=== PATIENT | female | born 1965 | race Caucasian/White ===

== ENCOUNTER 2021-09-05 07:48 | Day surgery (SDC) | payer BC ==
[~2021-09-05] VITALS: Ht 167.6 cm; Wt 60.6 kg
[~2021-09-05 07:48] MED LIST: LIOT5 PO; PROGESTERONE PO; T3/T4 PO
--- NOTE | 2021-09-05 08:19 | NUR ---
[facility] in [facility] warming gown applied. Surgical site prepped with 2% Chlorhexidine cloth wipe. History, Chart, Medications and Allergies reviewed before start of procedure.Lungs clear T/O to Auscultation. Patient confirms NPO status and agrees with scheduled surgery. Pre-Op teaching done. Pt verbalizes understanding. Pre-Op teaching done. Pt verbalizes understanding. Patient States Post-Procedure ride home has been arranged. Patient reports completing Chlorhexadine shower X2 prior to admission to hospital.
== END 2021-09-05 12:06 | disposition home or self-care (01) ==
LOC: ORSCMMR 07:48 → ORD 09:15 → ORSCMMR 12:06
PROVIDERS: Surgery
PROC: 05HN33Z Insertion of Infusion Device into Left Internal Jugular Vein, Percutaneous Approach (ICD-10-PCS; principal; 2021-09-05 09:15)
DX: C50.411 Malignant neoplasm of upper-outer quadrant of right female breast (principal); K21.9 Gastro-esophageal reflux disease without esophagitis; Z87.891 Personal history of nicotine dependence; E03.9 Hypothyroidism, unspecified; D50.9 Iron deficiency anemia, unspecified; Z79.899 Other long term (current) drug therapy
CPT/HCPCS: 77001; A9270; C1788; J0690; J1100; J1642; J1885; J2250; J2405; J2704; J2795; J3010; J7120

== ENCOUNTER → 2021-10-07 | Outpatient (CLI) | payer BC ==
[2021-10-09 13:11] LABS: HPV 16 Negative (Negative); HPV 18 Negative (Negative); HPV OTHER HR TYPES Negative (Negative)
== END | disposition home or self-care (01) ==
LOC: LAB 18:02 → LAB SHORT 18:02
PROVIDERS: Internal Medicine
DX: Z01.419 Encounter for gynecological examination (general) (routine) without abnormal findings (principal)
CPT/HCPCS: 87624; G0123

== ENCOUNTER 2022-01-29 09:04 | Day surgery (SDC) | payer BC ==
[~2022-01-29 09:04] MED LIST changes: +PROG100 PO
--- NOTE | 2022-01-29 11:14 | NUR ---
History, Chart, Medications and Allergies reviewed before start of procedure. Ambulatory in Day Surgery. Patient confirms NPO status and agrees with scheduled surgery. Pre-Op teaching done. Pt verbalizes understanding. Patient States Post-Procedure ride home has been arranged.
== END 2022-01-30 00:05 | disposition home or self-care (01) ==
LOC: NM 09:04 → ORSCMMR 09:06 → NM 10:00
PROVIDERS: Surgery
PROC: 07B50ZZ Excision of Right Axillary Lymphatic, Open Approach (ICD-10-PCS; principal; 2022-01-29 11:00)
PROC: 0HBT0ZZ Excision of Right Breast, Open Approach (ICD-10-PCS; principal; 2022-01-29 11:00)
DX: C50.411 Malignant neoplasm of upper-outer quadrant of right female breast (principal); Z17.0 Estrogen receptor positive status [ER+]; E03.9 Hypothyroidism, unspecified; Z87.891 Personal history of nicotine dependence
CPT/HCPCS: 38792; 76098; 88307; 88341; 88342; A9270; A9520; J1100; J2250; J2370; J2405; J2704; J2795; J3010; J7120; Q9968